=== PATIENT | male | born 1950 | race Caucasian/White ===

== ENCOUNTER → 2018-03-12 | Outpatient (CLI) | payer MEDICARE, OTHER ==
[~2018-03-12] MED LIST: ACETAMINOPHEN325 M1 PO; ALLOPURINOL 10100 M1 PO; AMIODARONE PO; AMITRIPTYLINE H25 M2 PO; ASPIRIN EC81 M1 PO; CARDIZEM CD120 MG PO; CRESTOR5 MG PO; DILTIAZEM 24HR180 M1 PO; FISH OIL 1,0001 EAC5 PO; HYDROCODON-ACE1 EAC7 PO; IRON325 PO; LASIX 40 MG TAB40 MG PO; LOPRESSOR100 MG PO; NORVASC5 MG PO; OXYCODONE HCL5 M1 PO; PACERONE 200 M200 M1 PO; POTASSIUM20 PO; PRADAXA150 MG PO; SENOKOT-S1 TA1 PO; SORINE 80 MG TA80 MG PO; TOPROL XL50 MG PO; TRICOR145 MG PO; ZETIA10 MG PO
--- NOTE | 2018-03-18 11:50 | SLEEP ---
[address] [address] SLEEP STUDY REPORT Name: JOSE FREDERICK Room: [facility]#: [id number] Admission: 03/12/18 Attend Phys: Gabriela Posadas Discharge: Date of : 46 Report #: [id number] THIS REPORT FOR: //name// CC: Zoë Galicia This study has been reviewed in its entirety by a board certified sleep specialist DATE OF SERVICE: 03/12/2018 SLEEP STUDY REQUESTING PHYSICIAN: Zoë Galicia DO Full polysomnography was performed. The patient has some occasional awakenings at night and mild daytime sleepiness. [place] sleepiness scale was 7/24. The patient's weight was 258 pounds with a BMI of 35. A total study time was 412 minutes. Total sleep time 293 minutes with sleep efficiency slightly decreased to 71%. 12% of the time was spent in REM sleep. During the study, there were no apneas noted. He did have a total of 30 hypopneas. 22 of these were in REM sleep. Total apnea-hypopnea index was 6.1. However, it was up to 37.7 in REM sleep. Did have additional respiratory arousals. Slept in both the supine as well as lateral positions. There were total of 478 periodic limb movements noted. 42 of those were associated with an arousal. That resulted in a PLMS index of 98 with a PLMS arousal index of 86. Snoring was not noted. Lowest observed O2 saturation was 96%. O2 saturations generally remained greater than 90% majority of the study time. A split study was not done due to lack of qualifying events during the initial aspect of the study. IMPRESSION: 1. Mild sleep disordered breathing. Apnea-hypopnea index total of 6.1. However, during rapid eye movement sleep, it is up to 37.7. 2. Large number of periodic limb movements, also associated with arousals. 3. Elevated body mass index. RECOMMENDATIONS: 1. Could consider return to the sleep lab for CPAP/[place] [address] SLEEP STUDY REPORT Name: JOSE FREDERICK Room: [facility]#: [id number] Admission: 03/12/18 Attend Phys: Gabriela Posadas Discharge: Date of : 46 Report #: [id number] 2. More aggressively treat periodic limb movement disorders. 3. Medically supervised weight loss to achieve and maintain ideal body weight. <ELECTRONICALLY SIGNED> By: Cora Andrade MD 03/18/18 [id number] Andrade MD /nt
== END ==
LOC: M.SLEEPLAB 20:50
DX: G47.33 Obstructive sleep apnea (adult) (pediatric) (principal); E66.01 Morbid (severe) obesity due to excess calories; I10 Essential (primary) hypertension; I48.2 Chronic atrial fibrillation; I25.10 Atherosclerotic heart disease of native coronary artery without angina pectoris; E78.5 Hyperlipidemia, unspecified; N52.9 Male erectile dysfunction, unspecified